=== PATIENT | female | born 1965 | race Two or more races ===

== ENCOUNTER → 2021-03-17 10:44 | Outpatient (CLI) | payer OTHER | END | disposition home or self-care (01) | LOC: PPH VACUNA 10:44 | DX: Z23 Encounter for immunization (principal) ==

== ENCOUNTER 2021-08-19 13:30 | Outpatient (CLI) | payer OTHER | END 2021-08-19 14:00 | disposition home or self-care (01) | LOC: PPH VACUNA 13:30 | PROVIDERS: ATTEND Emergency Medicine Pediatric Emergency Medicine | DX: Z23 Encounter for immunization (principal) ==